=== PATIENT | male | born 1960 | race Caucasian/White ===

== ENCOUNTER → 2017-12-26 11:39 | Outpatient (CLI) | payer OTHER, SELFPAY ==
--- NOTE | 2017-12-26 11:40 | DI.RAD.S_ITS ---
PROCEDURE: XR LUMBAR SPINE 2-3V INDICATIONS: right SI jt pain TECHNIQUE: 3 views of the lumbar spine were acquired. COMPARISON: None. FINDINGS: Bones: There are 5 lumbar-type vertebral bodies. The lowest intervertebral disk space is designated as L5-S1. The vertebral body heights are well-maintained without evidence to suggest an acute compression fracture. The bone mineralization is within normal limits. Mild to moderate degenerative changes of the lumbar spine are more prominent involving the lower lumbar facet joints. Intervertebral disc heights are relatively well-maintained throughout the lumbar spine. No significant degenerative changes of the sacroiliac joints are present. Soft tissues: There are small calcifications overlying the expected location of the bilateral kidneys. Otherwise, the soft tissues of the imaged abdomen and pelvis are within normal limits. IMPRESSION: 1. Mild degenerative changes of the lower lumbar spine. 2. Probable bilateral renal calculi. Dictated by: Romain Arthur M.D. on 12/26/2017 at 12:51 Approved by: Romain Arthur M.D. on 12/26/2017 at 12:54
--- NOTE | 2017-12-26 11:40 | DI.RAD.S_ITS ---
PROCEDURE: XR PELVIS 1-2V INDICATIONS: right SI joint pain TECHNIQUE: 1 view(s) of the pelvis acquired. COMPARISON: None. FINDINGS: Bones: No fractures or dislocations. No suspicious bony lesions. Mild degenerative changes of the bilateral hips are noted (left greater than right disease with medial joint space narrowing. No significant degenerative changes of the sacroiliac joints are evident. Soft tissues: Visualized bowel gas pattern is normal. The patient has had a prior vasectomy. No suspicious soft tissue calcifications. IMPRESSION: 1. Unremarkable appearance of the sacroiliac joints. 2. No acute fracture of the pelvis is evident. 3. Mild degenerative changes of the bilateral hips. Dictated by: Romain Arthur M.D. on 12/26/2017 at 12:55 Approved by: Romain Arthur M.D. on 12/26/2017 at 12:56
== END ==
PROVIDERS: Family Provider Internal Medicine; PCP Internal Medicine
DX: M51.37 Other intervertebral disc degeneration, lumbosacral region (principal); M16.0 Bilateral primary osteoarthritis of hip
CPT/HCPCS: 72100; 72170

== ENCOUNTER 2024-01-17 18:58 | Emergency (ER) | payer OTHER, SELFPAY ==
[2024-01-17 19:00] VITALS: BP 158/96; PULSE 90; RESP 16; TEMP 36.6; O2SAT 99; BMI 25.1
[2024-01-17] MEDS: TET,DIPH,PERTUSS(ACELL),VAC/PF 0.5 ML SYRINGE IM (19:17)
--- NOTE | 2024-01-17 19:19 | ED.WOUNDLAC ---
HPI - Wound/Laceration General Chief Complaint: Wound/Laceration Stated Complaint: hand lac Time Seen by Provider: 01/17/24 19:12 Source: patient Mode of arrival: Ambulatory History of Present Illness HPI narrative: Accidental left middle finger laceration. Full range of motion. Cut on metal wire. He does not remember when his last tetanus shot was. Full range of motion of finger. Related Data Home Medications Medication Instructions Recorded Confirmed CHOLECALCIFEROL (D3-5) 5,000 iu PO Q DAY ##0 08/10/11 12/24/22 Calcium Carbonate/Vitamin D 1 cap PO Q DAY ##0 08/10/11 12/24/22 (#CALCIUM) Fish Oil (#FISH OIL) 1 iu PO Q DAY ##0 08/10/11 12/24/22 MULTIVITAMIN (#MULTIPLE VITAMINS) 1 cap PO Q DAY ##0 08/10/11 12/24/22 Methylcobalamin (#[id number]) 1,000 mcg PO ##0 08/10/11 12/24/22 lamotrigine 250 mg tablet,extended 250 mg PO DAILY 12/26/17 12/24/22 release 24 hr Previous Rx's Medication Instructions Recorded dexamethasone 2 mg tablet 2 mg PO Q6H #8 tabs 12/30/17 fluticasone propionate 50 1 spray intranasal Q12H #16 grams 12/24/22 mcg/actuation nasal spray,suspension (Flonase Allergy Relief) Allergies Allergy/AdvReac Type Severity Reaction Status Date / Time No Known Drug Allergies Allergy Verified 01/17/24 19:05 Patient History Medical History (Updated 01/17/24 @ 19:20 by Ghada Hammer MD) Attention deficit disorder with hyperactivity Family History Father Family hx of prostate cancer Social History Smoking Status: Never smoker Smoking Status: Never smoker Exam Initial Vital Signs Initial Vital Signs: Vital Signs Temperature 97.8 F 01/17/24 19:00 Pulse Rate 90 01/17/24 19:00 Respiratory Rate 16 01/17/24 19:00 Blood Pressure 158/96 H 01/17/24 19:00 Pulse Oximetry 99 01/17/24 19:00 Oxygen Delivery Method Room Air 01/17/24 19:00 Const: Awake, alert, no acute distress, nontoxic appearing MSK: Full range of motion flexion and extension, capillary refill less than 2 seconds Skin: 1.5 cm oblique laceration over left middle finger near DIP joint Neuro: AO x3, CN II-XII grossly intact, moves all extremities Procedures Laceration Repair Laceration 1: Site: hand Side (If applicable): left Size (cm): 1.5 Description: linear Depth: simple, single layer Local Anesthetic: lidocaine 1% Amount of anesthesia used (mL): 4 Pre-repair: wound explored, irrigated extensively and deep structures intact Skin layer closed with: nylon Skin layer suture size: 4-0 Number of sutures: 5 Technique: simple, interrupted Nerve Block Nerve Block 1: Local Anesthetic: lidocaine 1% Amount of anesthesia used (mL): 4 Side: left Nerve Blocks: digital Procedure Successful: Yes Patient Tolerated Procedure: Well and No complications Complications: none Course Orders Ordered: Discontinued Medications Diphtheria/Tetanus/Acell Pertussis (Tet,Diph,Pertuss(Acell),Vac/Pf 0.5 Ml Syringe) 0.5 ml IM .ONCE ONE Stop: 01/17/24 19:06 Last Admin: 01/17/24 19:17 Dose: 0.5 ml Documented By: Lidocaine HCl (Lidocaine 1% 20 Ml) 20 ml INJ INTRA-OP ONE Stop: 01/17/24 19:16 Last Admin: 01/17/24 19:36 Dose: 20 ml Documented By: Vital Signs Vital signs: Vital Signs - 8 hr 01/17/24 19:00 Temperature 97.8 F Pulse Rate 90 Respiratory Rate 16 Blood Pressure 158/96 H Pulse Oximetry 99 Oxygen Delivery Method Room Air MDM - Wound/Laceration Differential Diagnosis Differential diagnosis: Likely laceration, abscess and abrasion MDM Narrative Medical decision making narrative: Accidental laceration to left middle finger. Full range of motion flexion and extension of joint, no evidence of tendon involvement. Tetanus shot updated. Patient given digital block and wound repaired since it was near DIP joint. Wound care instructions discussed at bedside. Discharge Plan Departure Patient Disposition: Home Clinical Impression: Laceration of finger of left hand Qualifiers: Encounter type: initial encounter Finger: middle finger Damage to nail status: without damage Foreign body presence: without foreign body Qualified Code(s): S61.213A - Laceration without foreign body of left middle finger without damage to nail, initial encounter Instructions: DI for Laceration Repair Activity Restrictions/Additional Instructions: Sutures will need to be removed in 5-7 days. Keep the wound clean and dry. If you notice redness, swelling, drainage please return for repeat evaluation. Prescriptions: No Action fluticasone propionate [Flonase Allergy Relief] 50 mcg/actuation spray,suspension 1 spray intranasal Q12H Qty: 16 0RF Rx Instructions: administer into each nostril lamotrigine 250 mg tablet extended release 24hr 250 mg PO DAILY CHOLECALCIFEROL (D3-5) 5,000 iu PO Q DAY Qty: 0 Calcium Carbonate/Vitamin D (#CALCIUM) 1 cap PO Q DAY Qty: 0 Fish Oil (#FISH OIL) 1 iu PO Q DAY Qty: 0 MULTIVITAMIN (#MULTIPLE VITAMINS) 1 cap PO Q DAY Qty: 0 Methylcobalamin (#[id number]) 1,000 mcg PO Qty: 0 dexamethasone 2 mg tablet 2 mg PO Q6H Qty: 8 0RF Referrals: Zander Amador MD [Primary Care Provider] - Stand Alone Forms: Patient Portal/API
[2024-01-17] MEDS: LIDOCAINE 1% 20 ML INJ (19:36)
== END 2024-01-17 22:40 | disposition home or self-care (01) ==
PROVIDERS: Emergency Provider Emergency Medicine; Family Provider Internal Medicine; PCP Internal Medicine
DX: S61.213A Laceration without foreign body of left middle finger without damage to nail, initial encounter (principal); W26.8XXA Contact with other sharp object(s), not elsewhere classified, initial encounter; Z23 Encounter for immunization
CPT/HCPCS: 12001; 64450; 90471; 99283; 90715

== ENCOUNTER → 2024-03-05 08:54 | Outpatient (CLI) | payer OTHER, SELFPAY ==
[2024-03-05 10:09] LABS: Add Manual Diff / Slide Review NO; Basophils Absolute Auto 100 /uL (0-100); Basophils Percent Auto 0.8 % (0-2); Eosinophils Absolute Auto 200 /uL (0-450); Hematocrit 43.5 % (41-53); Hemoglobin 14.9 g/dL (13.5-17.5); Lymphocytes Absolute Auto 1300 /uL (1100-4500); Lymphocytes Percent Auto 22.5 % (25-40); Mean Corpuscular HGB Conc 34.3 % (30-36); Mean Corpuscular Hemoglobin 29.5 PG (26-34); Mean Corpuscular Volume 85.9 fL (80-100); Monocytes Absolute Auto 500 /uL (0-900); Monocytes Percent Auto 8.9 % (3-14); Neutrophils Absolute Auto 3800 /uL (1500-7000); Neutrophils Percent Auto 64.8 % (50-75); Platelet Count 245 X10^3/uL (150-400); Red Blood Cell Count 5.06 X10^6/uL (4.5-5.9); Red Cell Distribution Width 13.7 % (11.6-14.8); White Blood Cell Count 5.9 X10^3/uL (4.5-11.0)
[2024-03-05 11:52] LABS: Alanine Aminotransferase 50 IU/L (<50); Albumin 4.4 g/dL (3.5-5.0); Albumin Globulin Ratio 1.9 (1.0-2.8); Alkaline Phosphatase 58 U/L (38-126); Aspartate Aminotransferase 43 IU/L (17-59); BUN Creatinine Ratio 21.8 (6-22); Bilirubin Total 0.6 mg/dL (0.2-1.3); Blood Urea Nitrogen 19 mg/dL (9-20); Calcium 8.9 mg/dL (8.4-10.2); Carbon Dioxide 28 mmol/L (22-32); Chloride 106 mmol/L (98-107); Cholesterol 276 mg/dL (140-199); Estimated Glomerular Filt Rate > 60 mL/min (>60); Globulin 2.3 g/dL (1.7-4.1); Glucose 109 mg/dL (80-110); HDL Cholesterol 61 mg/dL (40-60); HEMOLYSIS < 15 (0-50); LDL Cholesterol Calculated 201 mg/dL (<100); Potassium 4.5 mmol/L (3.4-5.1); Sodium 138 mmol/L (137-145); Total Protein 6.7 g/dL (6.3-8.2); Triglycerides 72 mg/dL (35-150)
[2024-03-05 12:25] LABS: Prostate Specific Antigen Scrn 7.44 ng/mL (0.1-4.0)
[2024-03-05 12:37] LABS: TSH w/ Reflex to FT4 2.08 uIU/mL (0.47-4.68)
== END ==
PROVIDERS: Family Provider Internal Medicine; PCP Internal Medicine; Referring Provider Internal Medicine; Visit Provider Internal Medicine
DX: Z12.5 Encounter for screening for malignant neoplasm of prostate (principal); D64.9 Anemia, unspecified; Z13.6 Encounter for screening for cardiovascular disorders; Z13.1 Encounter for screening for diabetes mellitus; Z13.220 Encounter for screening for lipoid disorders; Z79.899 Other long term (current) drug therapy; F31.81 Bipolar II disorder
CPT/HCPCS: 36415; 80053; 80061; 84443; 85025; G0103

== ENCOUNTER → 2024-03-06 16:24 | Outpatient (CLI) | payer OTHER, SELFPAY ==
[2024-03-08 08:09] LABS: PSA Free % 8.7 % (.); PSA, Total 6.7 ng/mL (0.0-4.0)
== END ==
PROVIDERS: Family Provider Internal Medicine; PCP Internal Medicine; Visit Provider Internal Medicine
DX: R97.20 Elevated prostate specific antigen [PSA] (principal)
CPT/HCPCS: 84153; 84154

== ENCOUNTER → 2024-03-06 16:54 | Outpatient (CLI) | payer OTHER, SELFPAY ==
[2024-03-13 19:11] LABS: Percent Free Testosterone 1.79 % (1.50-4.20); Testosterone Free 7.12 ng/dL (5.00-21.00); Testosterone Total 397.6 ng/dL (264.0-916.0)
== END ==
PROVIDERS: Family Provider Internal Medicine; PCP Internal Medicine; Referring Provider Internal Medicine; Visit Provider Internal Medicine
DX: E29.1 Testicular hypofunction (principal); R97.20 Elevated prostate specific antigen [PSA]
CPT/HCPCS: 36415; 84153; 84154; 84402; 84403